=== PATIENT | male | born 1970 | race Caucasian/White ===

== ENCOUNTER → 2022-04-17 | Day surgery (SDC) | payer OTHER ==
[~2022-04-17] VITALS: Ht 175.3 cm; Wt 106.6 kg
[~2022-04-17] MED LIST: COLESTID1 GM PO; LISINOPRIL40 MG PO; OMEPRAZOLE40 MG PO; SINGULAIR10 MG PO; VENTOLIN HFA IN18 GM INH; VITAMIN B12 PO
[2022-04-17 08:00] LABS: HCT 50.7 % (42.0-52.0); HGB 18.2 g/dl (13.2-18.0); MCH 34.7 pg (25.0-31.0); MCHC 35.9 g/dL (32.0-36.0); MCV 96.6 fL (78.0-100.0); MPV 9.8 fL (6.0-9.5); RBC 5.25 M/uL (4.70-6.00); RDW 12.3 % (11.5-14.0); WBC 7.8 K/uL (4.0-10.5)
[2022-04-17 08:17] LABS: ALBUMIN 3.6 g/dL (3.4-5.0); BILIRUBIN - TOTAL 1.6 mg/dL (0.2-1.0); CREATININE 0.89 mg/dL (0.67-1.17); GLOBULIN (CALCULATION) 4.2 g/dL; POTASSIUM 3.6 mmol/L (3.5-5.1); TOTAL PROTEIN 7.8 g/dL (6.4-8.2)
== END | disposition home or self-care (01) ==
LOC: FAS 07:19
PROVIDERS: Surgery
DX: D12.8 Benign neoplasm of rectum (principal); R19.7 Diarrhea, unspecified; K64.8 Other hemorrhoids; I10 Essential (primary) hypertension; K21.9 Gastro-esophageal reflux disease without esophagitis; F17.200 Nicotine dependence, unspecified, uncomplicated; Z86.010 Personal history of colon polyps
CPT/HCPCS: 36415; 80053; J2250; J7120